=== PATIENT | male | born 1930 | race Two or more races ===

== ENCOUNTER 2018-01-12 07:57 | Emergency (ER) | payer OTHER ==
[~2018-01-12] VITALS: Ht 162.6 cm; Wt 54.4 kg
[~2018-01-12 07:57] MED LIST: ARICEPT10 MG PO; CEFADROXIL500 MG PO; CLONOPIN; LEVOFLOXACIN750 MG PO; NAMENDA10 MG PO; PNEU16DI2; PROVENTIL IH; RESTORIL30 M1; SEROQUEL200 MG PO; ZITHROMAX500 MG PO; ZYNCOF 20-400120 ML PO; [UNRECOGNIZED DRUG - OTHER] IH
[2018-01-12] MEDS ORDERED: APETIGEN P12.5 MG/15 PO (13:29)
[2018-01-12] MEDS ORDERED: PEPCID AC20 MG PO (13:29)
== END 2018-01-12 13:44 | disposition home or self-care (01) ==
LOC: ER 07:57
DX: R63.0 Anorexia (principal); K29.60 Other gastritis without bleeding

== ENCOUNTER 2018-12-02 12:20 | Emergency (ER) | payer OTHER ==
[~2018-12-02] VITALS: Ht 170.2 cm; Wt 45.4 kg
[~2018-12-02 12:20] MED LIST changes: +APETIGEN P12.5 MG/15 PO; +PEPCID AC20 MG PO
== END 2018-12-02 18:15 | disposition home or self-care (01) ==
LOC: ER 12:20
DX: G25.89 Other specified extrapyramidal and movement disorders (principal); R29.818 Other symptoms and signs involving the nervous system